=== PATIENT | female | born 1970 | race Caucasian/White ===

== ENCOUNTER 2020-08-21 16:48 | Emergency (ER) | payer OTHER, SELFPAY ==
[2020-08-21 17:49] VITALS: BP 122/72; PULSE 92; RESP 19; TEMP 37.1; O2SAT 99; BMI 22.3
--- NOTE | 2020-08-21 17:59 | CTR_ITS ---
PROCEDURE INFORMATION: Exam: CT Abdomen And Pelvis With Contrast Exam date and time: 08/21/2020 5:59 PM Age: 50 years old Clinical indication: Nausea; Abdominal pain; Localized; Left lower quadrant (llq); Prior surgery; Surgery type: Gb, x4; Additional info: Llq pain and rebound tenderness TECHNIQUE: Imaging protocol: Computed tomography of the abdomen and pelvis with contrast. Sagittal and coronal reformatted images were created and reviewed. Sagittal and coronal reformatted images were created and reviewed. Radiation optimization: All CT scans at this facility use at least one of these dose optimization techniques: automated exposure control; mA and/or kV adjustment per patient size (includes targeted exams where dose is matched to clinical indication); or iterative reconstruction. Contrast material: OMNI 300; Contrast volume: 75 ml; Contrast route: INTRAVENOUS (IV); COMPARISON: CT Abdomen/Pelvis [facility] [id number] 11/18/2011 9:27:32 PM RADIATION DOSE METRICS: Total DLP (mGy-cm): 724.07 FINDINGS: Lungs: Visualized lungs are clear. Pleural spaces: No pleural effusion. Heart: Visualized portions of the heart are unremarkable. Liver: 2 hepatic cysts, the larger measures 1.3 cm (series 2, image 13). Gallbladder and bile ducts: Patient has had a previous cholecystectomy. Dilatation of the biliary ducts, not unexpected in a patient who has had a prior cholecystectomy. Pancreas: The pancreas is unremarkable. No pancreatic ductal dilatation. Spleen: The spleen is unremarkable. Adrenal glands: The right and left adrenal glands are unremarkable. Kidneys and ureters: The right kidney is unremarkable. Interval development of an area area of relative decreased enhancement with a striated appearance in the lower pole of the left kidney, consistent with pyelonephritis. There is associated mild perinephric inflammation around the lower left kidney. There is also development of a fluid collection in the lower pole of the left kidney suspicious for a renal abscess. This measures 1.9 x 1.5 x 1.8 cm (series 601, image 25 and series 2, image 42). The right and left ureters are unremarkable. Stomach and bowel: No obstruction. No mucosal thickening. Appendix: The appendix is visualized and is unremarkable. No findings to suggest acute appendicitis. Intraperitoneal space: No free intraperitoneal air. No ascites. Vasculature: Mild atherosclerotic changes in the visualized arteries. No evidence for aortic aneurysm or aortic dissection. Hepatic veins, portal veins, splenic vein, and SMV are patent. 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 The more posterior vein is retroaortic in location. Lymph nodes: No lymphadenopathy. Urinary bladder: The bladder is incompletely filled, which can limit evaluation. No focal abnormality in the bladder however. Reproductive: The uterus is unremarkable. The patient has had a previous bilateral tubal ligation. Multiple dominant follicles in the right ovary, the largest measures 2.7 x 2.2 cm (series 2, image 60). Calcification in the left ovary, possibly due to sequela from a prior involuting cyst. Bones/joints: Mild degenerative changes at both the right and left hips. [id number] multilevel degenerative changes in the visualized spine. Soft tissues: No acute abnormality in the extra-abdominal soft tissues. CT/CT abdomen pelvis w con* [id number] IMPRESSION: 1. Interval development of findings consistent with pyelonephritis with an associated renal abscess in the lower pole of the left kidney. 2. Multiple dominant follicles in the right ovary. 3. Incidental/nonacute findings are listed in the report. Radiation Dose CTDIVOL = (mGy): DLP = 724.07 (mGy-cm)
[2020-08-21] MEDS: iohexol 300 mg/mL 100 mL Btl IV (18:22)
[2020-08-21 18:38] VITALS: RESP 20; O2SAT 98
[2020-08-21] MEDS: morphine 4 mg/mL SDV 1 mL IVP (18:38)
[2020-08-21] MEDS: ondansetron 2 mg/ML SDV 2 mL 4 MG IVP (18:38)
[2020-08-21 18:40] LABS: Basophils # 0.1 10^3/uL (0.0-0.1); Basophils % 0.7 %; Hematocrit 40.4 % (37.0-47.0); Hemoglobin 13.1 g/dL (11.5-15.3); Lymphocytes # 3.3 10^3/uL (0.8-4.8); Lymphocytes % 25.2 %; Mean Corpuscular HGB Conc 32.4 g/dL (30.0-36.0); Mean Corpuscular Hemoglobin 31.5 pg (28.0-34.0); Mean Corpuscular Volume 97.1 fL (81-99); Mean Platelet Volume 9.5 fL (7.4-10.4); Monocytes # 1.4 10^3/uL (0.2-0.9); Monocytes % 10.2 %; Neutrophils # 8.42 10^3/uL (1.8-7.7); Neutrophils % 63.5 %; Nucleated Red Blood Cells % 0 %; Platelet Count 234 10^3/cmm (130-400); Red Blood Count 4.16 10^6/uL (4.1-5.3); Red Cell Distribution Width 12.7 % (12.1-15.1); White Blood Count 13.3 10^3/uL (4.0-10.0)
[2020-08-21 18:41] LABS: Add Urine Culture? Yes; Add Urine Microscopic? YES; Bacteria Urine 1+ /hpf; Bilirubin Urine 1+ (Negative); Blood Urine 3+ (Negative); Glucose Urine UA Norm (Normal); Ketones Urine Negative (Negative); Leukocyte Esterase Urine 2+ (Negative); Nitrate Urine Negative (Negative); Protein Urine Neg (Negative); RBC Urine 0-4 /hpf (0-2); Squamous Epithelial Cell Urine 0-4 /hpf (0-5); Urine Appearance Cloudy (CLEAR); Urine Color Yellow (Yellow); Urobilinogen Urine 1 mg/dL (Negative); WBC Urine 80-100 /hpf (0-5); pH Urine 5 (5-7)
[2020-08-21 18:45] VITALS: BP 110/79; PULSE 88; RESP 18; O2SAT 97
[2020-08-21 19:13] LABS: Alanine Aminotransferase 33 U/L (0-33); Alkaline Phosphatase 103 IU/L (35-105); Globulin 4.6 g/dL (1.3-4.6); Glucose 69 mg/dL (65-115); Lipase 17 U/L (13-60); Total Bilirubin 0.9 mg/dL (0.15-1.2); Total Protein 7.7 g/dL (6.6-8.7)
--- NOTE | 2020-08-21 19:20 | W.ED.ABDPA2 ---
HPI - Abdominal Pain General: Chief Complaint: Abdominal Pain Stated Complaint: L side ABD pain Time Seen by Provider: 08/21/20 17:51 Source: patient Mode of arrival: ambulatory Limitations: no limitations History of Present Illness: HPI narrative: This 50-year-old female patient presents to the emergency department with left lower abdominal pain. Symptoms have been going on for about 7 days now but the patient has been trying to bear the pain. She denies any fever, no nausea or vomiting. She denies any urinary symptoms including dysuria, hematuria, frequency. She does not have a prior history of diverticulitis. Because her pain is worsening and is becoming unbearable she decided to come to the emergency department to be evaluated. MD elicited complaint: abdominal pain Pertinent past history: none Onset (ago): day(s) (7) Pain Consistency: constant Location: LLQ Severity: severe Quality: cramping Radiation: none Migration to: no migration Exacerbating factors: nothing Relieving factors: nothing Associated Symptoms: Denies anorexia, belching, bloating, change in bowel habits, change in stool character, chills, coffee ground emesis, constipation, diarrhea, dyspepsia, dysuria, excessive flatus, fever(s), heartburn, hematochezia, hematuria, hematemesis, fecal incontinence, loose stools, melena, nausea, poor appetite, syncope and vomiting Review of Systems General: Reports: 10 or more systems reviewed and unremarkable except in HPI and below Const: Denies: fever(s) or chills Card: Denies: syncope GI: Denies: nausea, vomiting, hematemesis, coffee ground emesis, heartburn, diarrhea, constipation, bloating, belching, excessive flatus, fecal incontinence, change in bowel habits, change in stool character, hematochezia or melena : Denies: dysuria or hematuria Physical Exam Const: COMMON NORMALS: no acute distress, average body habitus, patient oriented x3, no limitations, healthy appearing, alert and well nourished HENMT: COMMON NORMALS: normocephalic, atraumatic and moist oral mucous membranes HEAD & SCALP: normocephalic and atraumatic Neck/C-Spine: COMMON NORMALS: no meningeal signs and no JVD Resp: COMMON NORMALS: normal respiratory effort, No retractions, No use of accessory muscles, clear to auscultation bilaterally and percussion normal AUSCULTATION: clear to auscultation bilaterally PERCUSSION: percussion normal Cardio: COMMON NORMALS: no JVD, regular rate, regular rhythm, S1 normal heart sound present, S2 normal heart sound present, No gallops present (Cardio), No clicks present (Cardio), No murmurs present (Cardio), No rub (Cardio) and Peripheral pulses 2+ throughout RATE: regular rate RHYTHM: regular rhythm HEART SOUNDS: S1 normal heart sound present and S2 normal heart sound present PERIPHERAL PULSES: Peripheral pulses 2+ throughout GI: COMMON NORMALS: Normal to inspection, nondistended, normoactive bowel sounds present, Soft to palpation, No hepatosplenomegaly present, no masses and no bruits PALPATION: Yes Soft to palpation, Yes Tenderness to palpation present (GI) Details: LLQ, Yes Guarding due to palpation present (GI) and Yes No hepatosplenomegaly present : COMMON NORMALS: Yes no CVA tenderness BLADDER/KIDNEY EXAM: Yes no CVA tenderness Back/Pelvis: COMMON NORMALS: no CVA tenderness Extremity: COMMON NORMALS: normal to inspection, full ROM, capillary refill normal, no calf tenderness and no pedal edema Neuro: COMMON NORMALS: patient oriented x3 SENSORIUM/ORIENTATION: Yes alert MENINGEAL SIGNS: Yes no meningeal signs Skin: COMMON NORMALS: no rashes or lesions noted, no wounds, turgor normal, no jaundice, no petechiae and no mottling GENERAL SKIN EXAM: no rashes or lesions noted and turgor normal Course Reevaluation(s): Reevaluation #1: Discussed her lab and imaging findings with her. Discussed the concerning findings of pyelonephritis with a renal abscess. Advised that I would like to admit her to the hospital for evaluation and management and evaluation by the urologist. Patient states that she wants to go home as she needs to work tomorrow. She states she does not want to miss work. I tried to explain the seriousness of the situation the possibility of worsening of her condition. She voiced understanding and said if she gets any worse or does not improve she will return to be evaluated. Time: 19:20 Vital Signs: Vital signs: Vital Signs Temperature 98.7 F 08/21/20 17:49 Pulse Rate 70 08/21/20 20:17 Respiratory Rate 16 08/21/20 20:17 Blood Pressure 114/72 08/21/20 20:17 Pulse Oximetry 96 08/21/20 20:17 MDM - Abdominal Pain MDM Narrative: Medical decision making narrative: 50-year-old female patient who presented to the emergency department with left lower quadrant pain. Evaluation in the emergency department shows she has left pyelonephritis on a left renal abscess in the inferior pole of the left kidney. Because of the abscess she was advised to be admitted to the hospital for intravenous antibiotics and monitoring of the abscess to ensure that it resolves, however the patient declines as she says she wants to go home so she can go to work tomorrow. I explained to her the seriousness of her situation including the fact that she may deteriorate and have significant morbidity and even mortality. She voiced understanding but still elected to go home. She did say that if she does not improve or if she gets any worsening of her symptoms then she will return to be admitted for IV antibiotics and other management. A referral was made for urology and she will be contacted to schedule an appointment with the urologist Medical Records: Attestation: I reviewed the patient's medical records. Lab Data: Attestation: I reviewed the patient's lab results. Labs: Lab Results 08/21/20 08/21/20 08/21/20 Range/Units 17:45 18:33 18:33 WBC 13.3 H (4.0-10.0) 10^3/ uL RBC 4.16 (4.1-5.3) 10^6/u L Hgb 13.1 (11.5-15.3) g/dL Hct 40.4 (37.0-47.0) % MCV 97.1 (81-99) fL MCH 31.5 (28.0-34.0) pg MCHC 32.4 (30.0-36.0) g/dL RDW 12.7 (12.1-15.1) % Plt Count 234 (130-400) 10^3/c mm MPV 9.5 (7.4-10.4) fL Neut % (Auto) 63.5 % Lymph % (Auto) 25.2 % Barton % (Auto) 10.2 % Eos % (Auto) 0.0 % Baso % (Auto) 0.7 % Neut # (Auto) 8.42 H (1.8-7.7) 10^3/u L Lymph # (Auto) 3.3 (0.8-4.8) 10^3/u L Barton # (Auto) 1.4 H (0.2-0.9) 10^3/u L Eos # (Auto) 0.0 (0.0-0.8) 10^3/u L Baso # (Auto) 0.1 (0.0-0.1) 10^3/u L Nucleated RBC % (a uto) 0 % Nucleated RBCs # 0.0 /100WBC Sodium 133 L (136-145) mmol/L Potassium 4.0 (3.5-5.1) mmol/L Chloride 95 L (98-107) mmol/L Carbon Dioxide 27 (22-29) mmol/L Anion Gap 15.0 (5-19) BUN 7 (6-20) mg/dL Creatinine 0.5 (0.5-0.9) mg/dL GFR Calculation Not Reportable Glucose 69 (65-115) mg/dL Calculated Osmolal ity 272 L (285-295) mOsm/k g Calcium 8.0 L (8.5-10.5) mg/dL Total Bilirubin 0.9 (0.15-1.2) mg/dL AST 36 H (0-32) U/L ALT 33 (0-33) U/L Alkaline Phosphata se 103 (35-105) IU/L C-Reactive Protein 105.5 H (0.0-4.9) mg/L Total Protein 7.7 (6.6-8.7) g/dL Albumin 3.1 L (3.5-5.2) g/dL Globulin 4.6 (1.3-4.6) g/dL Lipase 17 (13-60) U/L Urine Color Yellow (Yellow) Urine Appearance Cloudy (CLEAR) Urine pH 5 (5-7) Ur Specific Gravit y 1.010 (1.005-1.030) Urine Protein Neg (Negative) Urine Glucose (UA) Norm (Normal) Urine Ketones Negative (Negative) Urine Blood 3+ H (Negative) Urine Nitrate Negative (Negative) Urine Bilirubin 1+ H (Negative) Urine Urobilinogen 1 H (Negative) mg/dL Ur Leukocyte Peggy ase 2+ H (Negative) Urine RBC 0-4 H (0-2) /hpf Urine WBC 80-100 H (0-5) /hpf Ur Squamous Epith Cells 0-4 H (0-5) /hpf Amorphous Sediment Not Reportable Urine Bacteria 1+ H (NONE) /hpf Imaging Data ^: CT Abd/Pel: Attestation: I personally reviewed and interpreted this imaging study as follows: Radiologist's impression: [id number] [place], [place] [address]JH Scan ReportSigned with Addenda Patient: Erna Marie #: [id number]: 1970Acct#:[id number]/Sex: 50 / FADM Date: 08/21/20Loc: ERRoom/Bed:Attending Dr: Ordering Provider/Ordering MD: Rima Styles MD, [facility] [place] Date of Service: 08/21/20 Procedure(s): CT abdomen pelvis w con* [id number] Accession Number(s): [id number] Report Number: [id number]/CT abdomen pelvis w con* [id number] THIS REPORT CONTAINS FINDINGS THAT MAY BE CRITICAL TO PATIENT CARE. The findings were verbally communicated via telephone conference with RIMA Sánchez at 7:19 PM CDT on 08/21/2020. The findings were acknowledged and understood. Radiation Dose CTDIVOL = (mGy): DLP = 724.07 (mGy-cm) Addendum Dictated By: Giovana Ivey MDAddendum Signed By: Giovana Ivey MDSigned Date/Time:08/21/20 1921Addendum Cosigned By: PROCEDURE INFORMATION: Exam: CT Abdomen And Pelvis With Contrast Exam date and time: 08/21/2020 5:59 PM Age: 50 years old Clinical indication: Nausea; Abdominal pain; Localized; Left lower quadrant (llq); Prior surgery; Surgery type: Gb, x4; Additional info: Llq pain and rebound tenderness TECHNIQUE: Imaging protocol: Computed tomography of the abdomen and pelvis with contrast. Sagittal and coronal reformatted images were created and reviewed. Sagittal and coronal reformatted images were created and reviewed. Radiation optimization: All CT scans at this facility use at least one of these dose optimization techniques: automated exposure control; mA and/or kV adjustment per patient size (includes targeted exams where dose is matched to clinical indication); or iterative reconstruction. Contrast material: OMNI 300; Contrast volume: 75 ml; Contrast route: INTRAVENOUS (IV); COMPARISON: CT Abdomen/Pelvis [facility] [id number] 11/18/2011 9:27:32 PM RADIATION DOSE METRICS: Total DLP (mGy-cm): 724.07 FINDINGS: Lungs: Visualized lungs are clear. Pleural spaces: No pleural effusion. Heart: Visualized portions of the heart are unremarkable. Liver: 2 hepatic cysts, the larger measures 1.3 cm (series 2, image 13). Gallbladder and bile ducts: Patient has had a previous cholecystectomy. Dilatation of the biliary ducts, not unexpected in a patient who has had a prior cholecystectomy. Pancreas: The pancreas is unremarkable. No pancreatic ductal dilatation. Spleen: The spleen is unremarkable. Adrenal glands: The right and left adrenal glands are unremarkable. Kidneys and ureters: The right kidney is unremarkable. Interval development of an area area of relative decreased enhancement with a striated appearance in the lower pole of the left kidney, consistent with pyelonephritis. There is associated mild perinephric inflammation around the lower left kidney. There is also development of a fluid collection in the lower pole of the left kidney suspicious for a renal abscess. This measures 1.9 x 1.5 x 1.8 cm (series 601, image 25 and series 2, image 42). The right and left ureters are unremarkable. Stomach and bowel: No obstruction. No mucosal thickening. Appendix: The appendix is visualized and is unremarkable. No findings to suggest acute appendicitis. Intraperitoneal space: No free intraperitoneal air. No ascites. Vasculature: Mild atherosclerotic changes in the visualized arteries. No evidence for aortic aneurysm or aortic dissection. Hepatic veins, portal veins, splenic vein, and SMV are patent. 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 The more posterior vein is retroaortic in location. Lymph nodes: No lymphadenopathy. Urinary bladder: The bladder is incompletely filled, which can limit evaluation. No focal abnormality in the bladder however. Reproductive: The uterus is unremarkable. The patient has had a previous bilateral tubal ligation. Multiple dominant follicles in the right ovary, the largest measures 2.7 x 2.2 cm (series 2, image 60). Calcification in the left ovary, possibly due to sequela from a prior involuting cyst. Bones/joints: Mild degenerative changes at both the right and left hips. [id number] multilevel degenerative changes in the visualized spine. Soft tissues: No acute abnormality in the extra-abdominal soft tissues. CT/CT abdomen pelvis w con* [id number] IMPRESSION: 1. Interval development of findings consistent with pyelonephritis with an associated renal abscess in the lower pole of the left kidney. 2. Multiple dominant follicles in the right ovary. 3. Incidental/nonacute findings are listed in the report. Radiation Dose CTDIVOL = (mGy): DLP = 724.07 (mGy-cm) Dictated By:Giovana Ivey MDSigned By:Giovana Ivey MDSigned Date/Time:08/21/201854DD/ 52 Discharge Plan Discharge Patient Disposition: Home Clinical Impression: Abscess of left kidney, Pyelonephritis Condition: Stable Prescriptions: New Bactrim DS 800-160 mg tablet 1 tab PO BID 14 Days Qty: 28 RF: 0 hydrocodone-acetaminophen 5-325 mg tablet 1 tab PO Q6H PRN (Reason: pain) Qty: 20 RF: 0 Discharge Orders: Discharge ED (Routine); Ordered 08/21/20 Ordered By: Rima Styles Discharge Diet: Usual diet Discharge Activity: Increase activity as tolerated Patient Instructions: Acute Pyelonephritis (ED), Opioid Safety Activity Restrictions/Additional Instructions: Return for any new or worsening symptoms, especially fever, vomiting, worsening pain. You really should be admitted to the hospital like I discussed so if you do not show significant improvement in the next couple days please return for reevaluation. Take the antibiotic as prescribed and the pain medicine as needed. You will be contacted with an appointment is follow-up with a urologist. Follow-up with your primary care provider within 3 days. Coding Level of Care Code ED Storage Battery Tester for Adán Magana
[2020-08-21 19:37] VITALS: RESP 18; O2SAT 98
[2020-08-21] MEDS: HYDROmorphone 1 mg/mL INJ 1 mL 0.5 MG IVP (19:37)
[2020-08-21 19:39] LABS: Blood Urea Nitrogen 7 mg/dL (6-20); Carbon Dioxide 27 mmol/L (22-29)
[2020-08-21 19:41] VITALS: BP 102/67; PULSE 83; RESP 16; O2SAT 97
[2020-08-21 19:45] LABS: Albumin Level 3.1 g/dL (3.5-5.2); Aspartate Amino Transferase 36 U/L (0-32); C Reactive Protein 105.5 mg/L (0.0-4.9); Chloride 95 mmol/L (98-107); Osmolality Calculated 272 mOsm/kg (285-295); Sodium 133 mmol/L (136-145)
[2020-08-21 20:17] VITALS: BP 114/72; PULSE 70; RESP 16; O2SAT 96
--- NOTE | 2020-08-22 08:03 | PC.SOCIAL ---
Addendum entered by Gaby Lovell 09/05/20 15:45: leasing property manager called the office of Dr. Barrett to confirm if an appointment had been scheduled for patient. leasing property manager spoke with Pam, was told that clinic called patient and left a message to patient to return clinics phone call to schedule an appointment. Clinic has not heard from patient at this time. Original Note: Called Pam regarding Urology referral per Dr Styles for renal abscess and Pyelonephritis. Information provided they will print info, review and schedule/ notify patient of appt.
== END 2020-08-21 20:27 | disposition home or self-care (01) ==
PROVIDERS: Physician Assistant; Emergency Provider Family Medicine
DX: N15.1 Renal and perinephric abscess (principal); N12 Tubulo-interstitial nephritis, not specified as acute or chronic
CPT/HCPCS: 74177; 80053; 81001; 83690; 85025; 86140; 87077; 87086; 87186; 96374; 96375; 99284; J1170; J2270; J2405; Q9967

== ENCOUNTER 2021-09-09 12:48 | Emergency (ER) | payer SELFPAY ==
[2021-09-09 14:57] VITALS: BP 106/68; PULSE 93; RESP 16; TEMP 36.7; O2SAT 98
--- NOTE | 2021-09-09 16:14 | W.ED.ABDPA2 ---
Documented by User: Alejandro Sneed DO 09/10/21 09:05 HPI - Abdominal Pain General: Chief Complaint: Abdominal Pain Stated Complaint: Abd And back pain Time Seen by Provider: 09/09/21 16:01 Source: patient Mode of arrival: ambulatory Limitations: no limitations History of Present Illness: 51-year-old female presents emergency room complaining of bilateral flank pain. She was seen a year ago with similar complaints at that time she had a left renal abscess but declined hospital admission is recommended in the emergency room. She completed a course of oral antibiotics and never had any follow-up. The last few days she has began having increasing pain and some moderate dysuria. She denies any obvious hematuria denies any fever sweats or chills no chest pain or shortness of breath MD elicited complaint: flank pain Pertinent past history: other (Pyelonephritis 1 year ago with abscess) Onset (ago): day(s) Pain Consistency: constant Location: L flank and R flank Severity: moderate Quality: cramping Radiation: none Exacerbating factors: nothing Relieving factors: nothing Associated Symptoms: Reports GI cramping; Denies anorexia, belching, bloating, change in bowel habits, change in stool character, chills, coffee ground emesis, constipation, diarrhea, dyspepsia, dysuria, excessive flatus, fever(s), heartburn, hematochezia, hematuria, hematemesis, fecal incontinence, loose stools, melena, nausea, poor appetite, syncope and vomiting Review of Systems Const: Denies: fever(s) or chills ENMT: Denies: throat pain, ear or mastoid pain, nasal discharge or nasal congestion Card: Denies: syncope Resp: Denies: dyspnea, productive cough or non-productive cough GI: Reports: GI cramping; Denies: nausea, vomiting, hematemesis, coffee ground emesis, heartburn, diarrhea, constipation, bloating, belching, excessive flatus, fecal incontinence, change in bowel habits, change in stool character, hematochezia or melena : Denies: dysuria or hematuria Skin/Breast: Denies: rash or pruritus [facility] ED PFSH: Medical History Pyelonephritis Renal abscess Physical Exam Const: GENERAL APPEARANCE: cooperative and comfortable ORIENTATION/CONSCIOUSNESS: Yes awake, Yes oriented to person, Yes oriented to place and Yes oriented to time HENMT: COMMON NORMALS: normocephalic, atraumatic and hearing grossly normal bilaterally HEAD & SCALP: normocephalic and atraumatic Neck/C-Spine: COMMON NORMALS: no JVD Resp: COMMON NORMALS: normal respiratory effort, No retractions, No use of accessory muscles and clear to auscultation bilaterally AUSCULTATION: clear to auscultation bilaterally Cardio: COMMON NORMALS: no JVD, regular rate, regular rhythm and No murmurs present (Cardio) RATE: regular rate RHYTHM: regular rhythm GI: COMMON NORMALS: Soft to palpation and No hepatosplenomegaly present AUSCULTATION: Yes normoactive bowel sounds PALPATION: Yes Soft to palpation, No Tenderness to palpation present (GI), No Guarding due to palpation present (GI) and Yes No hepatosplenomegaly present Extremity: COMMON NORMALS: normal to inspection, capillary refill normal, no clubbing, cyanosis or edema, no calf tenderness and no pedal edema Neuro: SENSORIUM/ORIENTATION: Yes oriented to person, Yes oriented to place and Yes oriented to time Skin: COMMON NORMALS: no rashes or lesions noted GENERAL SKIN EXAM: no rashes or lesions noted Course Vital Signs: Vital signs: Vital Signs Temperature 98.1 F 09/09/21 14:57 Pulse Rate 81 09/09/21 16:57 Respiratory Rate 16 09/09/21 14:57 Blood Pressure 113/81 09/09/21 16:57 Pulse Oximetry 100 09/09/21 16:57 MDM - Abdominal Pain Medical Decision Making Care signed out to Dr. Francisco at change of shift. See final notes for diagnosis and disposition. Patient presents here with a urinary tract infection with possible pyelonephritis I did offer her CT abdomen but she states she felt improved and would like to go home her white count here is normal. We will start her on Cipro she is to follow-up with PCP she is return if worsening she understands agrees to plan. Medical Records I reviewed the patient's medical records. Lab Data I reviewed the patient's lab results. : 09/09/21 16:25 09/09/21 16:25 Labs/Radiology: Laboratory Results WBC 6.4 10^3/uL (4.0-10.0) 09/09/21 16:25 RBC 4.19 10^6/uL (4.1-5.3) 09/09/21 16:25 Hgb 13.2 g/dL (11.5-15.3) 09/09/21 16:25 Hct 41.0 % (37.0-47.0) 09/09/21 16:25 MCV 97.9 fl (81-99) 09/09/21 16: MCH 31.5 pg (28.0-34.0) 09/09/21 16: MCHC 32.2 g/dL (30.0-36.0) 09/09/21 16: RDW 12.9 % (12.1-15.1) 09/09/21: Plt Count 87 10^3/cmm (130-400) L 09/09/21 16: MPV 10.2 fL (7.4-10.4) 09/09/21 16:25 Neut % (Auto) 38.9 % 09/09/21 16: Lymph % (Auto) 47.6 % 09/09/21 16:25 [place] % (Auto) 4.7 % 09/09/21 16:25 Eos % (Auto) 8.0 % 09/09/21 16: Baso % (Auto) 0.6 % 09/09/21: Neut # (Auto) 2.48 10^3/uL (1.8-7.7) 09/09/21 16: Lymph # (Auto) 3.0 10^3/uL (0.8-4.8) 09/09/21 16:25 [place] # (Auto) 0.3 10^3/uL (0.2-0.9) 09/09/21 16:25 Eos # (Auto) 0.5 10^3/uL (0.0-0.8) 09/09/21 16:25 Baso # (Auto) 0.0 10^3/uL (0.0-0.1) 09/09/21 16: Nucleated RBC % (auto) 0 % 09/09/21 16: Nucleated RBCs # 0.0 /100WBC 09/09/21 16:25 Sodium 137 mmol/L (136-145) 09/09/21 16:25 Potassium 3.6 mmol/L (3.5-5.1) 09/09/21 16:25 Chloride 100 mmol/L (98-107) 09/09/21 16:25 Carbon Dioxide 31 mmol/L (22-29) H 09/09/21 16:25 Anion Gap 9.6 (5-19) 09/09/21 16:25 BUN 9 mg/dL (6-20) 09/09/21 16:25 Creatinine 0.6 mg/dL (0.5-0.9) 09/09/21 16:25 GFR Calculation 105.4 mL/min (90-130) 09/09/21 16:25 Glucose 86 mg/dL (65-115) 09/09/21 16:25 Calculated Osmolality 282 mOsm/kg (285-295) L 09/09/21 16:25 Calcium 9.0 mg/dL (8.5-10.5) 09/09/21 16:25 Total Bilirubin 0.3 mg/dL (0.15-1.2) 09/09/21 16:25 AST 36 U/L (0-32) H 09/09/21 16:25 ALT 37 U/L (0-33) H 09/09/21 16:25 Alkaline Phosphatase 114 IU/L (35-105) H 09/09/21 16:25 Total Protein 8.1 g/dL (6.6-8.7) 09/09/21 16:25 Albumin 3.7 g/dL (3.5-5.2) 09/09/21 16:25 Globulin 4.4 g/dL (1.3-4.6) 09/09/21 16:25 Lipase 18 U/L (13-60) 09/09/21 16:25 Urine Color Dark yellow (Yellow) 09/09/21 16:00 Urine Appearance Cloudy (CLEAR) 09/09/21 16:00 Urine pH 5 (5-7) 09/09/21 16:00 Ur Specific [place] 1.025 (1.005-1.030) 09/09/21 16:00 Urine Protein Neg (Negative) 09/09/21 16:00 Urine Glucose (UA) Norm (Normal) 09/09/21 16:00 Urine Ketones Negative (Negative) 09/09/21 16:00 Urine Blood 2+ (Negative) H 09/09/21 16:00 Urine Nitrate Positive (Negative) H 09/09/21 16:00 Urine Bilirubin 1+ (Negative) H 09/09/21 16:00 Urine Urobilinogen 1 mg/dL (Negative) H 09/09/21 16:00 Ur Leukocyte Esterase 2+ (Negative) H 09/09/21 16:00 Urine RBC 5-10 /hpf (0-2) H 09/09/21 16:00 Urine WBC 25-40 /hpf (0-5) H 09/09/21 16:00 Ur Squamous Epith Cells 5-10 /hpf (0-5) H 09/09/21 16:00 Amorphous Sediment Not Reportable 09/09/21 16:00 Urine Bacteria 3+ /hpf (NONE) H 09/09/21 16:00 Discharge Plan Discharge Patient Disposition: Home Clinical Impression: Acute cystitis Qualifiers: Hematuria presence: without hematuria Qualified Code(s): N30.00 - Acute cystitis without hematuria Condition: Stable Prescriptions: New hydrocodone-acetaminophen 5-325 mg tablet 1 tab PO Q6H PRN (Reason: pain) Qty: 14 0RF Cipro 500 mg tablet 500 mg PO BID Qty: 14 0RF No Action cranberry 500 mg Capsule 500 mg PO .ONCE 0RF Discharge Orders: Discharge ED (Routine); Ordered 09/09/21 Ordered By: Lizandro Francisco Discharge Diet: Advance as tolerated Discharge Activity: Resume usual activity Patient Instructions: Urinary Tract Infection in Men (ED), Opioid Safety Coding Level of Care Code ED Supply Chain Procurement Manager for Chg Fwd Exam Comprehensive Documented by User: Lizandro Francisco MD 09/09/21 19:53 HPI - Abdominal Pain General: Chief Complaint: Abdominal Pain Stated Complaint: Abd And back pain Time Seen by Provider: 09/09/21 16:01 History of Present Illness: . PFS ED PFSH: Medical History Pyelonephritis Renal abscess Course Vital Signs: Vital signs: Vital Signs Temperature 98.1 F 09/09/21 14:57 Pulse Rate 81 09/09/21 16:57 Respiratory Rate 16 09/09/21 14:57 Blood Pressure 113/81 09/09/21 16:57 Pulse Oximetry 100 09/09/21 16:57 MDM - Abdominal Pain Medical Decision Making Patient presents here with a urinary tract infection with possible pyelonephritis I did offer her CT abdomen but she states she felt improved and would like to go home her white count here is normal. We will start her on Cipro she is to follow-up with PCP she is return if worsening she understands agrees to plan. Lab Data : 09/09/21 16:25 09/09/21 16:25 Labs/Radiology: Laboratory Results WBC 6.4 10^3/uL (4.0-10.0) 09/09/21 16:25 RBC 4.19 10^6/uL (4.1-5.3) 09/09/21 16:25 Hgb 13.2 g/dL (11.5-15.3) 09/09/21 16:25 Hct 41.0 % (37.0-47.0) 09/09/21 16:25 MCV 97.9 fl (81-99) 09/09/21 16:25 MCH 31.5 pg (28.0-34.0) 09/09/21 16:25 MCHC 32.2 g/dL (30.0-36.0) 09/09/21 16:25 RDW 12.9 % (12.1-15.1) 09/09/21 16:25 Plt Count 87 10^3/cmm (130-400) L 09/09/21 16:25 MPV 10.2 fL (7.4-10.4) 09/09/21 16:25 Neut % (Auto) 38.9 % 09/09/21 16:25 Lymph % (Auto) 47.6 % 09/09/21 16:25 [place] % (Auto) 4.7 % 09/09/21 16:25 Eos % (Auto) 8.0 % 09/09/21 16:25 Baso % (Auto) 0.6 % 09/09/21 16:25 Neut # (Auto) 2.48 10^3/uL (1.8-7.7) 09/09/21 16:25 Lymph # (Auto) 3.0 10^3/uL (0.8-4.8) 09/09/21 16:25 [place] # (Auto) 0.3 10^3/uL (0.2-0.9) 09/09/21 16:25 Eos # (Auto) 0.5 10^3/uL (0.0-0.8) 09/09/21 16:25 Baso # (Auto) 0.0 10^3/uL (0.0-0.1) 09/09/21 16:25 Nucleated RBC % (auto) 0 % 09/09/21 16:25 Nucleated RBCs # 0.0 /100WBC 09/09/21 16:25 Sodium 137 mmol/L (136-145) 09/09/21 16:25 Potassium 3.6 mmol/L (3.5-5.1) 09/09/21 16:25 Chloride 100 mmol/L (98-107) 09/09/21 16:25 Carbon Dioxide 31 mmol/L (22-29) H 09/09/21 16:25 Anion Gap 9.6 (5-19) 09/09/21 16:25 BUN 9 mg/dL (6-20) 09/09/21 16:25 Creatinine 0.6 mg/dL (0.5-0.9) 09/09/21 16:25 GFR Calculation 105.4 mL/min (90-130) 09/09/21 16:25 Glucose 86 mg/dL (65-115) 09/09/21 16:25 Calculated Osmolality 282 mOsm/kg (285-295) L 09/09/21 16:25 Calcium 9.0 mg/dL (8.5-10.5) 09/09/21 16:25 Total Bilirubin 0.3 mg/dL (0.15-1.2) 09/09/21 16:25 AST 36 U/L (0-32) H 09/09/21 16:25 ALT 37 U/L (0-33) H 09/09/21 16:25 Alkaline Phosphatase 114 IU/L (35-105) H 09/09/21 16:25 Total Protein 8.1 g/dL (6.6-8.7) 09/09/21 16:25 Albumin 3.7 g/dL (3.5-5.2) 09/09/21 16:25 Globulin 4.4 g/dL (1.3-4.6) 09/09/21 16:25 Lipase 18 U/L (13-60) 09/09/21 16:25 Urine Color Dark yellow (Yellow) 09/09/21 16:00 Urine Appearance Cloudy (CLEAR) 09/09/21 16:00 Urine pH 5 (5-7) 09/09/21 16:00 Ur Specific [place] 1.025 (1.005-1.030) 09/09/21 16:00 Urine Protein Neg (Negative) 09/09/21 16:00 Urine Glucose (UA) Norm (Normal) 09/09/21 16:00 Urine Ketones Negative (Negative) 09/09/21 16:00 Urine Blood 2+ (Negative) H 09/09/21 16:00 Urine Nitrate Positive (Negative) H 09/09/21 16:00 Urine Bilirubin 1+ (Negative) H 09/09/21 16:00 Urine Urobilinogen 1 mg/dL (Negative) H 09/09/21 16:00 Ur Leukocyte Esterase 2+ (Negative) H 09/09/21 16:00 Urine RBC 5-10 /hpf (0-2) H 09/09/21 16:00 Urine WBC 25-40 /hpf (0-5) H 09/09/21 16:00 Ur Squamous Epith Cells 5-10 /hpf (0-5) H 09/09/21 16:00 Amorphous Sediment Not Reportable 09/09/21 16:00 Urine Bacteria 3+ /hpf (NONE) H 09/09/21 16:00 Discharge Plan Discharge Patient Disposition: Home Clinical Impression: Acute cystitis Qualifiers: Hematuria presence: without hematuria Qualified Code(s): N30.00 - Acute cystitis without hematuria Condition: Stable Prescriptions: New hydrocodone-acetaminophen 5-325 mg tablet 1 tab PO Q6H PRN (Reason: pain) Qty: 14 0RF Cipro 500 mg tablet 500 mg PO BID Qty: 14 0RF No Action cranberry 500 mg Capsule 500 mg PO .ONCE 0RF Discharge Orders: Discharge ED (Routine); Ordered 09/09/21 Ordered By: Lizandro Francisco Discharge Diet: Advance as tolerated Discharge Activity: Resume usual activity Patient Instructions: Urinary Tract Infection in Men (ED), Opioid Safety Coding Level of Care Code ED Supply Chain Procurement Manager for Chg Fwd Exam Comprehensive
[2021-09-09 16:38] LABS: Basophils % 0.6 %; Eosinophils # 0.5 10^3/uL (0.0-0.8); Hemoglobin 13.2 g/dL (11.5-15.3); Lymphocytes % 47.6 %; Mean Corpuscular HGB Conc 32.2 g/dL (30.0-36.0); Mean Corpuscular Hemoglobin 31.5 pg (28.0-34.0); Mean Corpuscular Volume 97.9 fl (81-99); Mean Platelet Volume 10.2 fL (7.4-10.4); Monocytes # 0.3 10^3/uL (0.2-0.9); Monocytes % 4.7 %; Neutrophils # 2.48 10^3/uL (1.8-7.7); Neutrophils % 38.9 %; Nucleated Red Blood Cells % 0 %; Platelet Count 87 10^3/cmm (130-400); Red Blood Count 4.19 10^6/uL (4.1-5.3); Red Cell Distribution Width 12.9 % (12.1-15.1); White Blood Count 6.4 10^3/uL (4.0-10.0)
[2021-09-09 16:46] LABS: Add Urine Culture? Yes; Add Urine Microscopic? YES; Bacteria Urine 3+ /hpf; Bilirubin Urine 1+ (Negative); Blood Urine 2+ (Negative); Glucose Urine UA Norm (Normal); Ketones Urine Negative (Negative); Leukocyte Esterase Urine 2+ (Negative); Nitrate Urine Positive (Negative); Protein Urine Neg (Negative); Specific Gravity, Urine 1.025 (1.005-1.030); Urine Appearance Cloudy (CLEAR); Urine Color Dark Yellow (Yellow); Urobilinogen Urine 1 mg/dL (Negative); WBC Urine 25-40 /hpf (0-5); pH Urine 5 (5-7)
[2021-09-09 16:52] VITALS: O2SAT 99
[2021-09-09] MEDS: ondansetron 2 mg/ML SDV 2 mL 4 MG IVP (16:52)
[2021-09-09] MEDS: morphine 4 mg/mL SDV 1 mL IVP (16:52)
[2021-09-09 16:57] VITALS: BP 113/81; PULSE 81; O2SAT 100
[2021-09-09 16:59] LABS: Alanine Aminotransferase 37 U/L (0-33); Albumin Level 3.7 g/dL (3.5-5.2); Alkaline Phosphatase 114 IU/L (35-105); Anion Gap 9.6 (5-19); Aspartate Amino Transferase 36 U/L (0-32); Blood Urea Nitrogen 9 mg/dL (6-20); Carbon Dioxide 31 mmol/L (22-29); Chloride 100 mmol/L (98-107); Globulin 4.4 g/dL (1.3-4.6); Glomerular Filtration Rate 105.4 mL/min (90-130); Glucose 86 mg/dL (65-115); Lipase 18 U/L (13-60); Osmolality Calculated 282 mOsm/kg (285-295); Potassium 3.6 mmol/L (3.5-5.1); Sodium 137 mmol/L (136-145); Total Bilirubin 0.3 mg/dL (0.15-1.2); Total Protein 8.1 g/dL (6.6-8.7)
[2021-09-09 17:10] LABS: Slide Review Slide Review Perform
[2021-09-09] MEDS: ciprofloxacin 500 mg Tablet PO (19:55)
[2021-09-09] MEDS: HYDROcodone-acetaminophen 5-325 mg Tablet 1 TAB PO (20:04)
== END 2021-09-09 20:09 | disposition home or self-care (01) ==
PROVIDERS: Emergency Medicine; Emergency Provider Emergency Medicine
DX: N30.00 Acute cystitis without hematuria (principal)
CPT/HCPCS: 80053; 81001; 83690; 85025; 87077; 87086; 87186; 96374; 96375; 99284; J2270; J2405

== ENCOUNTER 2021-09-29 15:31 | Emergency (ER) | payer SELFPAY ==
[2021-09-29 15:59] VITALS: BP 120/73; PULSE 108; RESP 22; TEMP 37.4; O2SAT 98; BMI 22.3
[2021-09-29 16:09] VITALS: PULSE 101; O2SAT 100
--- NOTE | 2021-09-29 16:17 | CTR_ITS ---
PROCEDURE INFORMATION: Exam: CT Abdomen And Pelvis Without Contrast Exam date and time: 09/29/2021 4:47 PM Age: 51 years old Clinical indication: Abdominal pain; Localized; Left; Prior surgery; Surgery date: 6+ months; Surgery type: 4x , gb TECHNIQUE: Imaging protocol: Computed tomography of the abdomen and pelvis without contrast. Radiation optimization: All CT scans at this facility use at least one of these dose optimization techniques: automated exposure control; mA and/or kV adjustment per patient size (includes targeted exams where dose is matched to clinical indication); or iterative reconstruction. COMPARISON: CT abdomen pelvis w con* [id number] 08/21/2020 6:17 PM RADIATION DOSE METRICS: Total DLP (mGy-cm): 187 FINDINGS: Liver: A couple small cysts noted in the left hepatic lobe measuring up to 1.3 cm in size. Gallbladder and bile ducts: Cholecystectomy. Prominent common bile duct likely reflecting reservoir effect from prior cholecystectomy and unchanged. Pancreas: Normal. No ductal dilation. Spleen: Normal. No splenomegaly. Adrenal glands: Normal. No mass. Kidneys and ureters: No renal stones. No hydronephrosis. Stomach and bowel: Unremarkable. No obstruction. No mucosal thickening. Appendix: No evidence of appendicitis. Intraperitoneal space: Unremarkable. No free air. No significant fluid collection. Vasculature: Unremarkable. No abdominal aortic aneurysm. Lymph nodes: Unremarkable. No enlarged lymph nodes. Urinary bladder: Unremarkable as visualized. Reproductive: 3 cm right ovarian cyst, similar in appearance to prior study. Bones/joints: No acute fracture. Soft tissues: Unremarkable. CT/CT abdomen pelvis wo con [id number] IMPRESSION: No acute findings.
[2021-09-29 17:09] VITALS: BP 128/83; PULSE 88; O2SAT 93
[2021-09-29 17:10] LABS: Basophils # 0.1 10^3/uL (0.0-0.1); Basophils % 0.7 %; Hematocrit 43.5 % (37.0-47.0); Lymphocytes # 2.8 10^3/uL (0.8-4.8); Lymphocytes % 29.7 %; Mean Corpuscular HGB Conc 32.2 g/dL (30.0-36.0); Mean Corpuscular Hemoglobin 31.2 pg (28.0-34.0); Mean Corpuscular Volume 96.9 fl (81-99); Mean Platelet Volume 9.4 fL (7.4-10.4); Monocytes # 0.8 10^3/uL (0.2-0.9); Neutrophils # 5.81 10^3/uL (1.8-7.7); Neutrophils % 61.4 %; Nucleated Red Blood Cells % 0 %; Platelet Count 240 10^3/cmm (130-400); Red Blood Count 4.49 10^6/uL (4.1-5.3); Red Cell Distribution Width 12.6 % (12.1-15.1); White Blood Count 9.5 10^3/uL (4.0-10.0)
[2021-09-29] MEDS: sodium chloride 0.9% 1,000 ML 999 ML IV (17:15)
[2021-09-29] MEDS: ondansetron 2 mg/ML SDV 2 mL 4 MG IVP (17:15)
--- NOTE | 2021-09-29 17:23 | W.ED.BACK ---
HPI - Back Pain/Injury General: Chief Complaint: Back Pain/Injury Stated Complaint: Bad pain in the stomach Time Seen by Provider: 09/29/21 16:16 Source: patient Mode of arrival: ambulatory Limitations: no limitations History of Present Illness: 51-year-old female presents emergency room with complaint of back pain. She refers to pain into her left low back radiating down into her left leg at times. She not had any fever sweats or chills she is not used any [id number] medications for this pain. She has noticed that pain is worse with movement certain positions such as supine or flexions with lumbar spinal seem to actually improve it. We seen her few weeks ago she had a mild bladder infection at that time and was treated with antibiotics despite this the pain has persisted. MD elicited complaint: back pain Pertinent past history: prior back pain Onset (ago): week(s) Timing: constant Severity: severe Quality: sharp Location: lumbar spine Radiation: left upper leg Exacerbating factors: movement, sitting upright and walking Relieving factors: supine Associated symptoms: Deny abdominal pain, arthralgias, chills, change in bowel habits, difficulty walking, dysuria, fatigue, fecal incontinence, fever(s), hematuria, myalgias, nausea, numbness, syncope, tingling/numbness/burning, urinary frequency, urinary urgency, vomiting or weakness Review of Systems Const: Denies: fever(s), chills, fatigue or malaise ENMT: Denies: throat pain, ear or mastoid pain, nasal discharge or nasal congestion Card: Reports: chest pain; Denies: syncope Resp: Denies: dyspnea, productive cough or non-productive cough GI: Denies: abdominal pain, nausea, vomiting, fecal incontinence or change in bowel habits : Denies: flank pain, difficulty voiding, dysuria, urinary frequency, urinary urgency or hematuria Musc: Reports: back pain and extremity pain Skin/Breast: Denies: rash or pruritus Neuro: Denies: difficulty walking PFSH ED PFSH: Medical History Pyelonephritis Renal abscess Physical Exam Const: GENERAL APPEARANCE: cooperative and comfortable ORIENTATION/CONSCIOUSNESS: Yes awake, Yes oriented to person, Yes oriented to place and Yes oriented to time HENMT: COMMON NORMALS: normocephalic, atraumatic and hearing grossly normal bilaterally HEAD & SCALP: normocephalic and atraumatic Resp: COMMON NORMALS: normal respiratory effort, No retractions, No use of accessory muscles and clear to auscultation bilaterally AUSCULTATION: clear to auscultation bilaterally Cardio: COMMON NORMALS: regular rate, regular rhythm and No murmurs present (Cardio) RATE: regular rate RHYTHM: regular rhythm GI: COMMON NORMALS: Soft to palpation and No hepatosplenomegaly present AUSCULTATION: Yes normoactive bowel sounds PALPATION: Yes Soft to palpation, No Tenderness to palpation present (GI), No Guarding due to palpation present (GI) and Yes No hepatosplenomegaly present Extremity: COMMON NORMALS: normal to inspection, capillary refill normal, no clubbing, cyanosis or edema, no calf tenderness and no pedal edema Neuro: SENSORIUM/ORIENTATION: Yes oriented to person, Yes oriented to place and Yes oriented to time Skin: COMMON NORMALS: no rashes or lesions noted GENERAL SKIN EXAM: no rashes or lesions noted Course Vital Signs: Vital signs: Vital Signs Temperature 99.3 F 09/29/21 15:59 Pulse Rate 82 09/29/21 18:26 Respiratory Rate 22 H 09/29/21 15:59 Blood Pressure 143/85 09/29/21 18:26 Pulse Oximetry 100 09/29/21 18:26 Oxygen Delivery Me thod 09/29/21 18:00 MDM - Back Pain/Injury Medical Decision Making Labs and imaging reviewed. Patient's dip UA showed 3+ blood but in the micro there is no blood there is a very slight elevation of liver enzymes but the T bili is normal. Her back pain is actually lower it does not seem characteristic of gallbladder disease. No evidence of pyelonephritis based on laboratory studies or physical exam. Treat his lumbar back strain follow-up with PCP if not improving Medical Records I reviewed the patient's medical records. Labs I reviewed the patient's lab results. : 09/29/21 17:02 09/29/21 17:02 Radiology Impressions Abdomen/Pelvis CT 09/29/21 16:17 IMPRESSION: No acute findings. Laboratory Results WBC 9.5 10^3/uL (4.0-10.0) 09/29/21 17:02 RBC 4.49 10^6/uL (4.1-5.3) 09/29/21 17:02 Hgb 14.0 g/dL (11.5-15.3) 09/29/21 17:02 Hct 43.5 % (37.0-47.0) 09/29/21 17:02 MCV 96.9 fl (81-99) 09/29/21 17:02 MCH 31.2 pg (28.0-34.0) 09/29/21 17:02 MCHC 32.2 g/dL (30.0-36.0) 09/29/21 17:02 RDW 12.6 % (12.1-15.1) 09/29/21 17:02 Plt Count 240 10^3/cmm (130-400) 09/29/21 17:02 MPV 9.4 fL (7.4-10.4) 09/29/21 17:02 Neut % (Auto) 61.4 % 09/29/21 17:02 Lymph % (Auto) 29.7 % 09/29/21 17:02 [place] % (Auto) 8.0 % 09/29/21 17:02 Eos % (Auto) 0.0 % 09/29/21 17:02 Baso % (Auto) 0.7 % 09/29/21 17:02 Neut # (Auto) 5.81 10^3/uL (1.8-7.7) 09/29/21 17:02 Lymph # (Auto) 2.8 10^3/uL (0.8-4.8) 09/29/21 17:02 [place] # (Auto) 0.8 10^3/uL (0.2-0.9) 09/29/21 17:02 Eos # (Auto) 0.0 10^3/uL (0.0-0.8) 09/29/21 17:02 Baso # (Auto) 0.1 10^3/uL (0.0-0.1) 09/29/21 17:02 Nucleated RBC % (auto) 0 % 09/29/21 17:02 Nucleated RBCs # 0.0 /100WBC 09/29/21 17:02 Sodium 136 mmol/L (136-145) 09/29/21 17:02 Potassium 3.1 mmol/L (3.5-5.1) L 09/29/21 17:02 Chloride 99 mmol/L (98-107) 09/29/21 17:02 Carbon Dioxide 26 mmol/L (22-29) 09/29/21 17:02 Anion Gap 14.1 (5-19) 09/29/21 17:02 BUN 6 mg/dL (6-20) 09/29/21 17:02 Creatinine 0.4 mg/dL (0.5-0.9) L 09/29/21 17:02 GFR Calculation 168.3 mL/min (90-130) H 09/29/21 17:02 Glucose 87 mg/dL (65-115) 09/29/21 17:02 Calculated Osmolality 279 mOsm/kg (285-295) L 09/29/21 17:02 Calcium 9.2 mg/dL (8.5-10.5) 09/29/21 17:02 Total Bilirubin 0.6 mg/dL (0.15-1.2) 09/29/21 17:02 AST 45 U/L (0-32) H 09/29/21 17:02 ALT 46 U/L (0-33) H 09/29/21 17:02 Alkaline Phosphatase 122 IU/L (35-105) H 09/29/21 17:02 Total Protein 8.3 g/dL (6.6-8.7) 09/29/21 17:02 Albumin 3.4 g/dL (3.5-5.2) L 09/29/21 17:02 Globulin 4.9 g/dL (1.3-4.6) H 09/29/21 17:02 Lipase 14 U/L (13-60) 09/29/21 17:02 Urine Color Dark yellow (Yellow) 09/29/21 16:30 Urine Appearance Clear (CLEAR) 09/29/21 16:30 Urine pH 5 (5-7) 09/29/21 16:30 Ur Specific [place] 1.020 (1.005-1.030) 09/29/21 16:30 Urine Protein Neg (Negative) 09/29/21 16:30 Urine Glucose (UA) Norm (Normal) 09/29/21 16:30 Urine Ketones Negative (Negative) 09/29/21 16:30 Urine Blood 3+ (Negative) H 09/29/21 16:30 Urine Nitrate Negative (Negative) 09/29/21 16:30 Urine Bilirubin 1+ (Negative) H 09/29/21 16:30 Urine Urobilinogen 4 mg/dL (Negative) H 09/29/21 16:30 Ur Leukocyte Esterase Negative (Negative) 09/29/21 16:30 Urine RBC Rare /hpf (0-2) 09/29/21 16:30 Urine WBC None /hpf (0-5) 09/29/21 16:30 Ur Squamous Epith Cells 5-10 /hpf (0-5) H 09/29/21 16:30 Calcium Oxalate Crystal 5-10 /hpf H 09/29/21 16:30 Amorphous Sediment Not Reportable 09/29/21 16:30 Urine Bacteria 1+ /hpf (NONE) H 09/29/21 16:30 Urine Mucus 3+ /hpf 09/29/21 16:30 Discharge Plan Discharge Patient Disposition: Home Clinical Impression: Strain of lumbar region, Lumbar radiculopathy Condition: Stable Prescriptions: New hydrocodone-acetaminophen 5-325 mg tablet 1 tab PO Q6H PRN (Reason: pain) Qty: 20 0RF prednisone 20 mg tablet 20 mg PO TID Qty: 15 0RF Rx Instructions: 1 p.o. 3 times daily x3 days, 1 p.o. twice daily x2 days, 1 p.o. daily x2 days diclofenac sodium 75 mg tablet,delayed release (DR/EC) 75 mg PO Q12H PRN (Reason: pain) Qty: 20 0RF tizanidine 4 mg tablet 4 mg PO Q6H PRN (Reason: muscle spasticity) Qty: 20 0RF Rx Instructions: do not exceed 3 doses per 24 hrs No Action cranberry 500 mg Capsule 500 mg PO DAILY Discharge Orders: Discharge ED (Routine); Ordered 09/29/21 Ordered By: Alejandro Sneed Discharge Diet: Usual diet Discharge Activity: Increase activity as tolerated Patient Instructions: Opioid Safety Activity Restrictions/Additional Instructions: Case management will make arrangements for you to see Dr. Millan for your back pain. Coding Level of Care Code ED Casing Wringer Operator for Adán Fwd Exam Detailed
[2021-09-29 17:25] LABS: Urine Appearance Clear (CLEAR); Urine Color Dark Yellow (Yellow); pH Urine 5 (5-7)
[2021-09-29 17:26] LABS: Add Urine Culture? No; Add Urine Microscopic? YES; Bacteria Urine 1+ /hpf; Bilirubin Urine 1+ (Negative); Blood Urine 3+ (Negative); Glucose Urine UA Norm (Normal); Ketones Urine Negative (Negative); Leukocyte Esterase Urine Negative (Negative); Mucus Urine 3+ /hpf; Nitrate Urine Negative (Negative); Protein Urine Neg (Negative); RBC Urine RARE /hpf (0-2); Urobilinogen Urine 4 mg/dL (Negative)
[2021-09-29 17:36] LABS: Alanine Aminotransferase 46 U/L (0-33); Albumin Level 3.4 g/dL (3.5-5.2); Alkaline Phosphatase 122 IU/L (35-105); Anion Gap 14.1 (5-19); Aspartate Amino Transferase 45 U/L (0-32); Blood Urea Nitrogen 6 mg/dL (6-20); Calcium 9.2 mg/dL (8.5-10.5); Carbon Dioxide 26 mmol/L (22-29); Chloride 99 mmol/L (98-107); Creatinine Clr Calc Pharmacy 131.5722; Globulin 4.9 g/dL (1.3-4.6); Glomerular Filtration Rate 168.3 mL/min (90-130); Glucose 87 mg/dL (65-115); Lipase 14 U/L (13-60); Osmolality Calculated 279 mOsm/kg (285-295); Potassium 3.1 mmol/L (3.5-5.1); Sodium 136 mmol/L (136-145); Total Bilirubin 0.6 mg/dL (0.15-1.2); Total Protein 8.3 g/dL (6.6-8.7)
[2021-09-29] MEDS: dexamethasone 10 mg/mL INJ IM (17:49)
[2021-09-29] MEDS: ketorolac 30 mg/mL INJ IVP (17:49)
[2021-09-29] MEDS: orphenadrine 30 mg/mL Inj 2 mL 60 MG IVP (17:49)
[2021-09-29 18:00] VITALS: BP 120/74; PULSE 90; O2SAT 96
[2021-09-29 18:26] VITALS: BP 143/85; PULSE 82; O2SAT 100
== END 2021-09-29 18:25 | disposition home or self-care (01) ==
PROVIDERS: Emergency Provider Family Medicine
DX: S39.012A Strain of muscle, fascia and tendon of lower back, initial encounter (principal); M54.16 Radiculopathy, lumbar region; X58.XXXA Exposure to other specified factors, initial encounter
CPT/HCPCS: 74176; 80053; 81001; 83690; 85025; 96372; 96374; 96375; 99285; J1100; J1885; J2360; J2405; J7030

== ENCOUNTER → 2024-06-02 08:34 | Outpatient (BNVA) | payer OTHER, SELFPAY | PROVIDERS: Visit Provider Nurse Practitioner Family | DX: J02.9 Acute pharyngitis, unspecified (principal) | CPT/HCPCS: 87071; 87880 ==